=== PATIENT | male | born 2000 | race Hispanic/Latino ===

== ENCOUNTER 2019-02-27 21:42 | Emergency (ER) | payer BC, OTHER ==
--- NOTE | 2019-02-27 22:15 | RAD ---
FEXAM: Right knee radiographs 4 views PROVIDED CLINICAL HISTORY: Pain FINDINGS: Comparison 03/15/2016. There is no evidence for fracture or other acute osseous abnormality. Alignment appears anatomic. Joint spaces appear preserved. 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 Knee joint capsular distention, suggesting effusion. IMPRESSION: No evidence for an acute osseous abnormality. Joint capsular distention, suggesting effusion. If ther e is concern for internal derangement, consider MRI.
== END 2019-02-27 22:40 | disposition home or self-care (01) ==
LOC: ERS 21:42
DX: M23.91 Unspecified internal derangement of right knee (principal); F41.9 Anxiety disorder, unspecified